=== PATIENT | female | born 1970 | race Caucasian/White ===

== ENCOUNTER 2018-12-21 23:46 | Inpatient (IN) | payer OTHER ==
[2018-12-21] MEDS ORDERED: Lorazepam 2 MG/ML VIAL ONE (23:47)
[2018-12-22 00:09] LABS: Bilirubin Negative (Negative); Blood, Urine Negative (Negative); Clarity CLEAR (Clear); Glucose, Urine (Dipstick) Negative (Negative); Leukocyte Negative (Negative); Nitrite Negative (Negative); Protein, Urine (Dipstick) 100 mg/dL (Neg-Trace); Specific Gravity, Urine 1.004 (1.002-1.036); Urobilinogen 0.2 mg/dL (0.2-1.0)
[2018-12-22 00:10] LABS: Bacteria/HPF None Seen HPF (None Seen); Hyaline Casts/LPF 0-3 HYALINE CAST LPF (0-3 Hyaline); Pathc Cast-AUWi Flag 0.13 (0-2.49); RBC/HPF None Seen HPF (0-3); Squamous Epithelial 0-3 HPF (0-3); WBC/HPF None Seen HPF (0-3)
[2018-12-22] MEDS ORDERED: Lorazepam 2 MG/ML VIAL ONE (00:10)
[2018-12-22 00:26] LABS: #Lymphocytes 0.5 thou/uL (1.20-3.40); #Monocytes 0.4 thou/uL (0.11-0.59); #Neutrophils 3.3 thou/uL (1.40-6.50); %Basophils 1.1 % (0.0-1.0); %Eosinophils 0.9 % (0.0-10.0); %Lymphocytes 12.5 % (21.0-51.0); %Monocytes 9.2 % (0.0-10.0); %Neutrophils 76.3 % (42.0-75.0); Hemoglobin 11.5 g/dL (12.0-16.0); Mean Corpuscular HGB CONC 35.9 g/dL (32.0-36.0); Mean Corpuscular Hemoglobin 33.5 pg (27.0-31.0); Mean Corpuscular Volume 93.2 fL (78.0-98.0); Mean Platelet Volume 6.4 fL (7.4-10.4); Platelet Count 159 thou/uL (130-400); RBC Distribution Width 10.7 % (11.5-14.5); Red Blood Cell (RBC) Count 3.45 mill/uL (4.20-5.40); White Blood Cell (WBC) Count 4.3 thou/uL (4.8-10.8)
[2018-12-22 00:26] LABS: Medtox Reader # READER 4; Phencyclidine (PCP) Not Detected (NotDetected); THC/Cannabinoid Screen Not Detected (NotDetected)
[2018-12-22 00:27] LABS: Amphetamine Not Detected (NotDetected); Barbiturates Screen Not Detected (NotDetected); Benzodiazepine Screen Not Detected (NotDetected); Cocaine Metabolite Screen Detected (NotDetected); Medtox Control Line Valid? VALID (VALID); Methadone Not Detected (NotDetected); Methamphetamine Not Detected (NotDetected); Opiate Screen Not Detected (NotDetected); Oxycodone Screen Not Detected (NotDetected); Tricyclic Screen Detected (NotDetected)
[2018-12-22 00:50] LABS: ALT (SGPT) 14 U/L (8-55); AST (SGOT) 20 U/L (5-34); Albumin 4.2 g/dL (3.5-5.0); Alkaline Phosphatase 133 U/L (40-150); Anion Gap 16 mmol/L (10-20); BUN (Urea Nitrogen) 11 mg/dL (7.0-18.7); Bilirubin, Total 0.4 mg/dL (0.2-1.2); Calc. Creatinine Clearance 0 mL/min (70-130); Calcium 9.3 mg/dL (7.8-10.44); Carbon Dioxide 20 mmol/L (22-29); Chloride 86 mmol/L (98-107); Estimated GFR-MDRD 40; Globulin 3.9 g/dL (2.4-3.5); Glucose 112 mg/dL (70-105); Protein, Total 8.1 g/dL (6.0-8.3)
[2018-12-22 00:51] LABS: Acetaminophen Less than 6.0 mcg/mL (10.0-30.0); Alcohol 192 mg/dL (Less than 10); Salicylate Less than 8.0 mg/dL (15.0-30.0)
[2018-12-22 00:58] LABS: Potassium 2.6 mmol/L (3.5-5.1); Sodium 119 mmol/L (136-145)
[2018-12-22 01:15] LABS: Actual Bicarbonate (HCO3a) 21.4 mEq/L (22-28); Analyzer IN Cardio ER; Base Excess (BEa) -6.1 mEq/L (-2.0 to +3.0); CO2 Tension 50.4 mmHg (35.0-45.0); Calcium, Ionized 1.17 mmol/L (1.12-1.30); Carboxyhemoglobin (COHb) 2.1 gm% (0.0-3.0); O2 Tension (PaO2) 260.7 mmHg (80.0-100.0); Potassium - ABG Lab 2.57 mmol/L (3.70-5.30)
[2018-12-22 01:19] LABS: Puncture Site LRA; pH, Arterial 7.25 (7.35-7.45)
[2018-12-22] MEDS ORDERED: Potassium Chloride 20 MEQ in Premix Bag 1 BAG IVPB SCH (01:30)
[2018-12-22] MEDS ORDERED: Guaifenesin DM 100-10/5 ML UDCUP PO PRN (03:17)
[2018-12-22] MEDS ORDERED: NS 0.9% w/ 20 MEQ KCL 1,000 ML/1,000 ML BAG IV SCH ×2 (03:17→07:42)
[2018-12-22] MEDS ORDERED: Senokot S 8.6-50 MG TAB PO PRN (03:17)
[2018-12-22] MEDS ORDERED: Ondansetron PF 4 MG/2 ML Vial IVP PRN (03:17)
[2018-12-22] MEDS ORDERED: Calcium Carbonate 500 MG ChewTAB PO PRN (03:17)
[2018-12-22] MEDS ORDERED: Acetaminophen 325 MG TAB PO PRN (03:17)
[2018-12-22] MEDS ORDERED: Loperamide HCl 2 MG CAP PO PRN (03:17)
[2018-12-22] MEDS ORDERED: Bacteriostatic Water 30 ML VIAL FS PRN (03:50)
[2018-12-22] MEDS ORDERED: Multivitamins, Adult 10 ML in Sodium Chloride 0.9% 500 ML IV SCH (04:00)
[2018-12-22 04:33] LABS: Creatinine, Urine Less than 20.00 mg/dL (47-110); Sodium, Urine Less than 20 mmol/L (Not Available)
--- NOTE | 2018-12-22 04:48 | HP ---
PRIMARY CARE PHYSICIAN: Unknown. REASON FOR ADMISSION: Toxic metabolic encephalopathy and COPD exacerbation. HISTORY OF PRESENT ILLNESS: A 48-year-old female, who has underlying history of COPD who was brought to emergency room by paramedics for increasing shortness of breath and altered mental status. Patient was having difficulty breathing for the last 5 days. The patient is not able to provide any history at this point because she is completely encephalopathic. She has alcohol intoxication as well as drug intoxication. When paramedics saw her at that time, she was very combative. Paramedics gave her magnesium sulfate en route without any improvement. As per report, patient has home oxygen. She has underlying COPD. She refused CPAP, which was offered by paramedics. As the patient was so combative, she was given 1 mg Ativan. After that, patient became sleepy. She was given high-flow oxygen and that is why her carbon dioxide level was slightly high. She was also given 125 mg Solu-Medrol for her wheezing. In the emergency room, she was somnolent. She was not able to provide any history. She was admitted to [facility]. Routine blood test showed severe hyponatremia, hypokalemia, as well as leukopenia and anemia. Blood gas showed metabolic acidosis and CO2 retention. Her urine drug screen was positive for cocaine and tricyclic, and her alcohol level was 192. In the emergency room , patient was given IV fluid with potassium. Another dose of Ativan was given for agitation as well as DuoNeb therapy was given. When I saw the patient, at that time, the patient was somnolent and hemodynamically stable. REVIEW OF SYSTEMS: All review of system tried to review the patient, but unable to review because of altered mental status. PAST MEDICAL HISTORY: COPD with ?home oxygen therapy (unable to verify with the patient because of intoxication). PAST SURGICAL HISTORY: Unable to verify with the patient because of intoxication. PAST PSYCHIATRIC HISTORY: Anxiety and depression, unable to verify because of intoxication. SOCIAL HISTORY: Patient has drug positive for cocaine, but details unable to obtain from her because of intoxication. FAMILY HISTORY: Unable to obtain from patient because of intoxication. ALLERGIES: NO KNOWN DRUG ALLERGIES. CURRENT HOME MEDICATIONS: As per emergency room report, patient is on amitriptyline and Nexium. EMERGENCY ROOM COURSE: Patient is given IV fluid with potassium, Ativan, DuoNeb therapy, and potassium chloride IV. PHYSICAL EXAMINATION: VITAL SIGNS: Currently, blood pressure 127/84, pulse 100, respiratory rate 23, and saturation 95% on 1 L oxygen. Weight 47 kg. GENERAL: Patient is currently somnolent, arousable with deep noxious stimuli. HEENT: Head; normocephalic, atraumatic. Eyes; pupils round, reactive to light. Extraocular muscle intact. ENT; dry mucous membranes. No oral lesion. No pharyngeal erythema. No exudate. NECK: Supple. No JVD. No thyromegaly. No carotid bruit. LUNGS: Currently clear to auscultation without any rhonchi or rales. No accessory muscles of respiration use. CARDIAC: S1, S2 regular. Tachycardia. No murmur. No gallop. No rub. ABDOMEN: Soft, benign. No peritoneal sign. No distention. Bowel sounds present. No organomegaly. No mass. BACK EXAMINATION: Unremarkable. No CVA tenderness. EXTREMITIES: Upper extremity, passive movement of all joints are normal. Lower extremity, passive movement of all joints are normal. NEUROLOGIC: Unable to assess at this point because of somnolence status after Ativan. SKIN: No skin rash. HEMATOLOGICAL: No lymphadenopathy. PSYCHIATRIC: Unable to assess at this point. SIGNIFICANT LABORATORY DATA: EKG showing sinus tachycardia. CT brain based on my review no acute intracranial process. Chest x-ray based on my review no acute cardiopulmonary process. CBC; WBC 4.3, hemoglobin 11.5, and platelet 159. ABG; pH 7.25, CO2 is 50.4. O2 is 260, and bicarb 21.4. BMP; sodium 119, potassium 2.6, chloride 86, carbon dioxide 20, anion gap 16, BUN 11, creatinine 1.39, glucose 112, and calcium 9.3. LFT; AST 20, ALT 14, alkaline phosphatase 133, and albumin 4.2. BNP 72.5. Troponin x2 negative. Ammonia 26. Urinalysis unremarkable. Urine drug screen positive for tricyclic and cocaine. Serum drug screen showing alcohol level 192. ASSESSMENT AND PLAN: 1. Acute toxic metabolic encephalopathy, likely due to alcohol intoxication as well as cocaine abuse. Patient also has associated mild respiratory acidosis as well as abnormal electrolytes, all contributing to her encephalopathy. 2. Acute respiratory failure with hypoxia and hypercapnia. We will use oxygen only 1 L. We will monitor ABG again in the morning. Pulmonary group will be consulted. 3. Severe hyponatremia. We will check urine osmolality, plasma osmolality, urine sodium, urine creatinine as well as a TSH and random cortisol. We will also consult Nephrology for evaluation suspecting beer potomania as well. We will continue with NS with KCl at 100 mL/h. 4. Hypokalemia, likely due to alcohol use. Potassium is replaced in the emergency room. We will continue with potassium supplementation with IV fluid. We will recheck magnesium, phosphorus, and labs tomorrow. 5. Alcohol intoxication with alcohol abuse. Patient is at risk for alcohol withdrawal and that is why we will use ASE protocol. 6. Acute kidney failure. The patient will be given IV fluid and will repeat BMP tomorrow. 7. Chronic obstructive pulmonary disease exacerbation. Patient will be given DuoNeb q.6 hourly, Solu-Medrol 20 mg IV q.8 hourly. 8. Gastroesophageal reflux disease. We will continue Pepcid 20 mg p.o. b.i.d. 9. Leukopenia, anemia. Patient will be given multivitamins. 10. Protein-calorie malnutrition. Patient will be given nutritional supplementation. 11. Deep venous thrombosis prophylaxis. Lovenox 30 mg subcu daily. 12. Gastrointestinal prophylaxis. Pepcid 20 mg p.o. b.i.d. CODE STATUS: Patient is full code. Patient does not have any surrogate decision maker. DISPOSITION PLAN: Based on clinical course. We are expecting patient's stay in hospital more than 2 midnights. Plan of care discussed with the patient in detail. Job ID: [id number] MTDD
[2018-12-22 05:41] LABS: #Lymphocytes 0.1 thou/uL (1.20-3.40); #Neutrophils 2.7 thou/uL (1.40-6.50); %Monocytes 1.1 % (0.0-10.0); %Neutrophils 94.9 % (42.0-75.0); Hemoglobin 10.9 g/dL (12.0-16.0); Mean Corpuscular Hemoglobin 32.8 pg (27.0-31.0); Mean Corpuscular Volume 93.6 fL (78.0-98.0); Mean Platelet Volume 6.5 fL (7.4-10.4); Platelet Count 158 thou/uL (130-400); RBC Distribution Width 10.8 % (11.5-14.5); Red Blood Cell (RBC) Count 3.31 mill/uL (4.20-5.40); White Blood Cell (WBC) Count 2.8 thou/uL (4.8-10.8)
[2018-12-22 05:45] LABS: ALT (SGPT) 10 U/L (8-55); AST (SGOT) 17 U/L (5-34); Albumin 3.7 g/dL (3.5-5.0); Alkaline Phosphatase 118 U/L (40-150); Anion Gap 17 mmol/L (10-20); BUN (Urea Nitrogen) 10 mg/dL (7.0-18.7); Bilirubin, Total 0.3 mg/dL (0.2-1.2); Calc. Creatinine Clearance 40 mL/min (70-130); Calcium 8.9 mg/dL (7.8-10.44); Carbon Dioxide 17 mmol/L (22-29); Chloride 93 mmol/L (98-107); Estimated GFR-MDRD 44; Globulin 3.5 g/dL (2.4-3.5); Glucose 121 mg/dL (70-105); Magnesium 2.1 mg/dL (1.6-2.6); Phosphorus 2.4 mg/dL (2.3-4.7); Potassium 3.5 mmol/L (3.5-5.1); Protein, Total 7.2 g/dL (6.0-8.3); Sodium 123 mmol/L (136-145)
[2018-12-22] MEDS: methylPREDNISolone Sod Succ 40 MG VIAL IVP SCH ×3 (05:55→21:02)
--- NOTE | 2018-12-22 07:38 | CT ---
PRELIMINARY REPORT/[facility]/EMERGENCY AFTER HOURS PROCEDURE: EXAM: CT Head Without Contrast EXAM DATE/TIME: 12/22/2018 1:37 AM CLINICAL HISTORY: 48 years old, female; Signs and symptoms; Altered mental status/memory loss; Confusion or disorientat ion; Patient HX: F48 presents to ED C/O difficulty breathing x5 days. EMS reports PT is combative and smells strongly of alcohol, TECHNIQUE: Imaging protocol: Axial computed tomography images of the head without contrast. COMPARISON: No relevant prior studies available. FINDINGS: Brain: No acute intracranial hemorrhage or mass effect. There is decreased attenuation in the periventricular white matter, likely from microvascular disease . Suspect an old lacunar infarct in the right basal ganglia/periventricular region. No definite acute infarct by CT. MRI could be more sensitive/specific for detection, and also for distinguishing between old and subacute infarcts, as clinically directed. Ventricles: Ventricle size is normal for age. Bones/joints: No definite acute skull fracture. Sinuses: Included paranasal sinuses are essentially clear. Mastoid air cells: No significant acute finding. IMPRESSION: 1. No acute intracranial hemorrhage or mass effect. 2. Changes of microvascular disease, and suspected old right lacunar infarct. 3. No definite acute infarct by CT, see above discussion. Thank you for allowing us to participate in the care of your patient. Dictated and Authenticated by: Alexis Snider MD 12/22/2018 2:10 AM Central Time ([place] & [place]) FINAL REPORT: CT Brain WO Con: History: Altered mental status. Comparison: CT brain 2010. Findings: No acute intracranial process. Impression: Findings and impression are concordant with the preliminary report. Transcribed Date/Time: 12/22/2018 8:47 AM
[2018-12-22] MEDS ORDERED: Potassium Chloride 20 MEQ TAB PO SCH (07:45)
--- NOTE | 2018-12-22 07:48 | RAD ---
Portable chest: HISTORY: Dyspnea COMPARISON: 10/13/2015 FINDINGS: Lung jung are clear. Heart and mediastinum appear unremarkable. Vascularity is normal. Visualized osseous structures unremarkable. IMPRESSION: No acute finding
[2018-12-22 08:13] LABS: Actual Bicarbonate (HCO3a) 21.4 mEq/L (22-28); Base Excess (BEa) -4.5 mEq/L (-2.0 to +3.0); CO2 Tension 42.4 mmHg (35.0-45.0); Calcium, Ionized 1.22 mmol/L (1.12-1.30); Carboxyhemoglobin (COHb) 1.9 gm% (0.0-3.0); Hemoglobin (Hb) 11.9 g/dL (12.0-16.0); O2 Tension (PaO2) 63.6 mmHg (80.0-100.0); Potassium - ABG Lab 3.69 mmol/L (3.70-5.30); pH, Arterial 7.32 (7.35-7.45)
[2018-12-22 08:14] LABS: Puncture Site LRA
[2018-12-22] MEDS ORDERED: Famotidine 20 MG TAB PO SCH (09:00)
[2018-12-22] MEDS ORDERED: Enoxaparin Sodium 40 MG/0.4 ML SYRINGE SC SCH (09:00)
--- NOTE | 2018-12-22 10:12 | CON ---
DATE OF CONSULTATION: HISTORY OF PRESENT ILLNESS: Hailey De Jesus is a 48-year-old female, looks much older than her stated age, presented last night to the hospital with shortness of breath and confusion. Little over several days, she is drinking excessive alcohol, though she says she will drink 4 beers. Pack-a-day smoker. She was here in 2015 with similar problems. Unclear taking care of her at this stage. This morning, she remains encephalopathic, though apparently her vital signs improved somewhat. PAST MEDICAL HISTORY: Pertinent for previous substance abuse, previous renal failure, previous hyponatremia, previous COPD. She has a bipolar disorder, previous renal biopsy, previous hemodialysis catheter in place. REVIEW OF SYSTEMS: Otherwise unremarkable. PHYSICAL EXAMINATION: VITAL SIGNS: Sats 96% on 2 L, respiratory rate 20, blood pressure 126/92, temperature 98, and pulse 76. CHEST: Decreased breath sounds. No wheezing. CARDIAC: Normal S1 and S2. No gallops. ABDOMEN: No masses. IMAGING DATA: Chest x-ray is normal. CT of head was normal. Her lab shows a sodium of 123 this morning. Renal function, otherwise stable. LABORATORY DATA: Creatinine 1.28. Liver function is normal.sodium 119 on addmision Albumin is unremarkable. Toxicology, cocaine. PO2 of 63, pCO2 40, pH 7.32. IMPRESSION: 1. Acute on chronic respiratory failure. 2. Chronic obstructive pulmonary disease. 3. Ongoing tobacco abuse. 4. Substance abuse. 5. Hyponatremia. 6. Alcohol abuse. I agree with neb treatments, steroids, supportive care. We will follow cardiac sodium slowly. Job ID: [id number] MTDD
[2018-12-22] MEDS: Famotidine 20 MG TAB PO SCH (10:58)
[2018-12-22] MEDS: Enoxaparin Sodium 30 MG/0.3 ML SYRINGE SC SCH (10:58)
[2018-12-22 12:36] LABS: Anion Gap 14 mmol/L (10-20); BUN (Urea Nitrogen) 11 mg/dL (7.0-18.7); Calc. Creatinine Clearance 38 mL/min (70-130); Calcium 9.6 mg/dL (7.8-10.44); Carbon Dioxide 22 mmol/L (22-29); Chloride 97 mmol/L (98-107); Estimated GFR-MDRD 41; Glucose 149 mg/dL (70-105); Potassium 3.9 mmol/L (3.5-5.1); Sodium 129 mmol/L (136-145)
[2018-12-22] MEDS ORDERED: Dextrose 5% in Water 500 ML IV SCH ×2 (14:30→14:56)
[2018-12-22 16:27] LABS: Anion Gap 11 mmol/L (10-20); BUN (Urea Nitrogen) 12 mg/dL (7.0-18.7); Calc. Creatinine Clearance 36 mL/min (70-130); Calcium 9.7 mg/dL (7.8-10.44); Carbon Dioxide 25 mmol/L (22-29); Chloride 98 mmol/L (98-107); Estimated GFR-MDRD 39; Glucose 174 mg/dL (70-105); Potassium 4.2 mmol/L (3.5-5.1); Sodium 130 mmol/L (136-145)
--- NOTE | 2018-12-22 16:32 | CON ---
DATE OF CONSULTATION: 12/22/2018 CONSULTING PHYSICIAN: Tanya Fonseca MD REASON FOR CONSULTATION: Severe hyponatremia. HISTORY OF PRESENT ILLNESS: The patient is a 48-year-old female with known history of COPD, polysubstance abuse, who was brought in by EMS due to worsening shortness of breath and mental status change. The patient was confused on presentation and was unable to provide any significant history. She, however, was found to have hyponatremia with sodium of 119 necessitating Nephrology consult. The patient admitted to nausea and vomiting as well as intermittent frequent loose stools. She also was found to have hypokalemia. She denied chest pain, abdominal pain, but admitted to headache. She also denied dizziness, fall, dysuria, hematuria, or leg swelling. The patient reportedly was agitated when EMS saw her necessitating administration of IV Ativan. PAST MEDICAL HISTORY: 1. COPD. 2. Tobacco abuse disorder. 3. Polysubstance abuse. 4. Bipolar disorder. 5. Chronic kidney disease, status post prior renal biopsy. 6. The patient had prior renal failure for which she was on dialysis for some time that was discontinued subsequently. Was seeing Dr. Jimi cummings, but had not seen him for several years. PAST SURGICAL HISTORY: Appendectomy and delivery. SOCIAL HISTORY: The patient lives behind ex-. Admitted to alcohol, recreational drug, tobacco use. Has 5 kids. FAMILY HISTORY: Significant for depression and suicide in mother, who from suicide. Father also had alcohol issues and from COPD complications. ALLERGIES: NO KNOWN DRUG ALLERGIES REPORTED. HOME MEDICATIONS: The patient reports being on several medications including Flovent, amitriptyline, but she does not know the doses and names of others. REVIEW OF SYSTEMS: 12-point review of systems performed was negative other than pertinent positives and negatives included in the history of present illness. This also was grossly limited due to the patient's condition. PHYSICAL EXAMINATION: VITAL SIGNS: Temperature 97.6, pulse 107, respiratory rate 25, SpO2 of 99% on 1 L nasal cannula, blood pressure 125/84. GENERAL: Thin, middle-aged female, in mild respiratory distress. Afebrile. Anicteric. Acyanotic. HEENT: Normocephalic, atraumatic. Pupils 5 mm and reacting to light. Oral mucosa is moist. NECK: Supple, nontender with full range of motion. No masses or lymphadenopathy appreciated. CARDIOVASCULAR: Regular rhythm and rate with normal heart sounds 1 and 2. The patient is tachycardic. RESPIRATORY: Coarse breath sounds heard in all lung zones with some transmitted sounds/crackles. No obvious rhonchi was appreciated. Work of breathing is increased. GI: Full, soft, nontender, nondistended with normal bowel sounds. EXTREMITIES: Pain with no obvious edema. Few areas of resolving ecchymosis noted. Distal pulses are palpable. No erythema or edema appreciated. NEUROLOGIC: Conscious, alert, oriented x3. Mild memory lapse is noted. The patient moves all extremities. Cranial nerves 2 through 12 are intact. PSYCHIATRIC: The patient seems appropriate and cooperative. Denied hallucination. Some tremors noted. DIAGNOSTIC DATA: On presentation to the ED, CBC showed WBC count of 4.3, hemoglobin of 11.5, MCV of 93.2, platelet of 159. CMP on presentation showed sodium 119, potassium 2.6, chloride 86, CO2 of 20, anion gap 16, BUN 11, creatinine 1.39, glucose 112, calcium 9.3, total bilirubin 0.4, AST 20, ALT 14, alkaline phosphatase 133, total protein 8.1, albumin 4.2, globulin 3.9. Most recent BMP at 12:08 p.m. showed sodium 129, potassium 3.9, chloride 97, CO2 of 22, anion gap 14, BUN 11, creatinine 1.36, glucose 149, calcium 9.6. Magnesium is 2.1. Serum osmolality 273. Urine osmolality is 126. Urine creatinine is less than 20. Urine sodium is less than 20. Urinalysis showed clear yellow urine with pH of 6.0, specific gravity of 1.04, urine protein positive with negative glucose, ketone, blood, nitrite, bilirubin, and leukocyte esterase. Microscopy showed negative RBC and WBC. Urine drug screen was positive for tricyclic antidepressant as well as cocaine. Plasma alcohol on presentation was 192. Acetaminophen was less than 6.0 and salicylate was less than 8.0. CT scan of the brain performed on presentation showed no acute intracranial hemorrhage or mass effect, but changes of microvascular disease as well as right old lacunar infarcts were noted. Chest x-ray showed clear lung jung as well as unremarkable heart and mediastinum with no acute finding. ASSESSMENT: 1. Hyponatremia: Moderate to severe with serum sodium of 119. This is beer potomania from poor solute intake given appropriately low urine osmolality consistent with dilute urine. Hypokalemia also is contributory. We will replete serum sodium slowly as the patient being thin and with chronic alcohol abuse that is at increased risk of osmotic demyelination. We will target a correction of 6 units in the first 24 hours. I agree with normal saline. We will, however, reduce the rate to 50 mL/h from 100 and we will monitor serum sodium every 4 hours. 2. Hypokalemia: Due to poor oral intake as well as intermittent diarrhea. We will replete with potassium chloride. 3. Acute encephalopathy: Most likely due to polysubstance abuse as well as medications. The patient received Ativan. Clinically improved. She is cooperative and conversational at this time. Doubt if hyponatremia is contributing to these encephalopathy. 4. Chronic obstructive pulmonary disease with acute exacerbation. Deferred to Pulmonary and Critical Care as well as primary attending. 5. Chronic kidney disease with possible reversible component. The patient reportedly has history of renal failure requiring dialytic treatment, but was weaned off dialysis with improvement in renal function. Baseline creatinine is unknown at this time. We will monitor renal function. 6. Protein-calorie malnutrition: This is due to alcohol abuse and poor oral intake. We will add oral supplement. 7. We will monitor BMP and start dextrose infusion if rate of correction is higher than expected. Job ID: [id number]
[2018-12-22] MEDS: Dextrose 5% in Water 500 ML IV SCH ×2 (18:17→21:28)
[2018-12-22 20:50] LABS: Anion Gap 12 mmol/L (10-20); BUN (Urea Nitrogen) 15 mg/dL (7.0-18.7); Calc. Creatinine Clearance 40 mL/min (70-130); Calcium 9.2 mg/dL (7.8-10.44); Carbon Dioxide 22 mmol/L (22-29); Chloride 99 mmol/L (98-107); Estimated GFR-MDRD 44; Glucose 183 mg/dL (70-105); Potassium 3.5 mmol/L (3.5-5.1); Sodium 129 mmol/L (136-145)
[2018-12-23] MEDS ORDERED: Diazepam 5 MG TAB PO PRN (01:19)
[2018-12-23] MEDS ORDERED: Diazepam 5 MG TAB PO SCH (01:30)
[2018-12-23] MEDS ORDERED: Thiamine HCl 200 MG/2 ML VIAL IM SCH (01:30)
[2018-12-23 01:39] LABS: Anion Gap 12 mmol/L (10-20); BUN (Urea Nitrogen) 16 mg/dL (7.0-18.7); Calc. Creatinine Clearance 40 mL/min (70-130); Calcium 9.5 mg/dL (7.8-10.44); Carbon Dioxide 23 mmol/L (22-29); Chloride 99 mmol/L (98-107); Estimated GFR-MDRD 44; Glucose 132 mg/dL (70-105); Potassium 4.7 mmol/L (3.5-5.1); Sodium 129 mmol/L (136-145)
[2018-12-23] MEDS: Dextrose 5% in Water 500 ML IV SCH ×4 (02:09→09:51)
[2018-12-23 04:54] LABS: Anion Gap 9 mmol/L (10-20); BUN (Urea Nitrogen) 14 mg/dL (7.0-18.7); Calc. Creatinine Clearance 40 mL/min (70-130); Calcium 9.6 mg/dL (7.8-10.44); Carbon Dioxide 25 mmol/L (22-29); Chloride 100 mmol/L (98-107); Estimated GFR-MDRD 44; Glucose 192 mg/dL (70-105); Potassium 3.5 mmol/L (3.5-5.1); Sodium 130 mmol/L (136-145)
[2018-12-23 05:04] LABS: Band 4 % (5-11); Hemoglobin 11.1 g/dL (12.0-16.0); Hypochromia SLIGHT = 6-15 cells (100X) (0-5/hpf); Lymphocytes 5 % (21-51); MDiff Complete? YES; Mean Corpuscular HGB CONC 34.6 g/dL (32.0-36.0); Mean Corpuscular Hemoglobin 32.8 pg (27.0-31.0); Mean Corpuscular Volume 94.7 fL (78.0-98.0); Mean Platelet Volume 6.4 fL (7.4-10.4); Monocytes 4 % (0-10); Neutrophil 87 % (42-75); Platelet Count 197 thou/uL (130-400); Platelet Morphology Comment Appears Adequate; Red Blood Cell (RBC) Count 3.38 mill/uL (4.20-5.40); White Blood Cell (WBC) Count 5.9 thou/uL (4.8-10.8)
[2018-12-23] MEDS: methylPREDNISolone Sod Succ 40 MG VIAL IVP SCH ×3 (06:06→21:27)
[2018-12-23 08:08] LABS: Anion Gap 12 mmol/L (10-20); BUN (Urea Nitrogen) 15 mg/dL (7.0-18.7); Calc. Creatinine Clearance 42 mL/min (70-130); Calcium 9.4 mg/dL (7.8-10.44); Carbon Dioxide 24 mmol/L (22-29); Chloride 98 mmol/L (98-107); Estimated GFR-MDRD 48; Glucose 113 mg/dL (70-105); Potassium 3.8 mmol/L (3.5-5.1); Sodium 130 mmol/L (136-145)
[2018-12-23] MEDS ORDERED: cloNIDine 0.1 MG TAB PO PRN (08:16)
--- NOTE | 2018-12-23 08:44 | PRG ---
DATE OF SERVICE: 12/23/2018 SUBJECTIVE: Hailey De Jesus, this morning, still remains pretty short of breath, though she is swallowing little better. Denies any pain. OBJECTIVE: VITAL SIGNS: Blood pressure is elevated at 180/101, temperature 97, pulse 88, respiratory rate 18, and saturations are 100%. CHEST: Decreased breath sounds. Bilateral wheezing. CARDIAC: Normal S1 and S2. No gallops. ABDOMEN: No masses. LABORATORY DATA: Sodium is corrected to 130, BUN and creatinine are back to normal, and GFR is 48. IMPRESSION: 1. Polysubstance drug abuse. 2. Hyponatremia. 3. Chronic obstructive pulmonary disease. PLAN: Continue slow hydration. Nutrition, PT, antibiotics, steroids. We will follow. Job ID: [id number]
[2018-12-23] MEDS: Enoxaparin Sodium 30 MG/0.3 ML SYRINGE SC SCH (09:43)
[2018-12-23] MEDS: Multivitamin W/ Minerals 1 TAB PO SCH (09:44)
[2018-12-23] MEDS: Famotidine 20 MG TAB PO SCH (09:44)
[2018-12-23] MEDS: Amitriptyline HCl 25 MG TAB PO SCH ×2 (09:44→16:39)
[2018-12-23] MEDS: Folic Acid 1 MG TAB PO SCH (09:44)
[2018-12-23] MEDS ORDERED: Dextrose 5% in Water 1,000 ML IV SCH ×2 (10:00→10:10)
--- NOTE | 2018-12-23 10:13 | PDOC.PN ---
- Subjective Encounter Start Date: 12/23/18 Encounter Start Time: 10:10 Subjective: f/u for ETOH abuse, hyponatremia and COPD exacerbation. Feels -: a little better but remains weak. Tolerating po intake. - Objective Resuscitation Status - Order Detail: 12/22/18 03:11 Resuscitation Status Routine Resuscitation Status: FULL: Full Resuscitation MAR Reviewed: Yes Vital Signs & Weight: Vital Signs (12 hours) Temp Pulse Resp BP Pulse Ox 12/23/18 08:48 118 H 25 H 99 12/23/18 08:00 100 12/23/18 07:27 97.8 F 12/23/18 04:00 98.9 F 12/23/18 01:23 162/105 H 12/23/18 00:06 119 H 28 H 97 12/22/18 23:56 98.2 F Weight Weight 102 lb 9.6 oz Most Recent Monitor Data Heart Rate from ECG 101 NIBP 167/103 NIBP BP-Mean 124 Respiration from ECG 25 SpO2 100 I&O: 12/22/18 12/23/18 12/24/18 06:59 06:59 06:59 Intake Total 690 3350 Output Total 600 5850 Balance 90 -2500 Result Diagrams: 12/23/18 04:06 12/23/18 07:35 Additional Labs: Laboratory Tests 12/22/18 12/23/18 12/23/18 20:08 00:48 04:06 Sodium 129 L 129 L Creatinine 1.28 H 1.29 H TSH 3rd Generation Cortisol 1.80 12/23/18 12/23/18 04:06 04:06 Sodium 130 L Creatinine 1.28 H TSH 3rd Generation 0.3610 Cortisol Radiology Reviewed by me: Yes (CT brain - no acute process) EKG Reviewed by me: Yes (Tele - Sinus tachycardia) Phys Exam - Physical Examination Constitutional: NAD alert, responsive HEENT: PERRLA, sclera anicteric, oral pharynx no lesions Neck: no nodes, no JVD, supple, full ROM coarse sounds bilat, exp wheezing, diminished in bases tachycardic S1, S2 Cardiovascular: no significant murmur, no rub, gallop Gastrointestinal: soft, non-tender, no distention, positive bowel sounds Musculoskeletal: no edema, pulses present + resting tremor Neurological: normal sensation, moves all 4 limbs Psychiatric: A&O x 3 Skin: normal turgor, cap refill <2 seconds Dx/Plan (1) Toxic metabolic encephalopathy Code(s): G92 - TOXIC ENCEPHALOPATHY Status: Acute Comment: Improved with supportive mgmt, continue metabolic support and monitor mental status (2) Acute respiratory failure with hypoxia Code(s): J96.01 - ACUTE RESPIRATORY FAILURE WITH HYPOXIA Status: Acute Comment: Improved, continue pulmonary support, Dulera, Solumedrol, Duonebs, O2 supplementation (3) COPD exacerbation Code(s): J44.1 - CHRONIC OBSTRUCTIVE PULMONARY DISEASE W (ACUTE) EXACERBATION Status: Acute Comment: See above (4) Hyponatremia Code(s): E87.1 - HYPO-OSMOLALITY AND HYPONATREMIA Status: Acute Comment: Severe hyponatremia improving, secondary to ETOH abuse, chronic component that will likely never correct completely (5) Acute kidney injury superimposed on CKD Code(s): N17.9 - ACUTE KIDNEY FAILURE, UNSPECIFIED; N18.9 - CHRONIC KIDNEY DISEASE, UNSPECIFIED Status: Acute Comment: Improved, avoid nephrotoxic agents and limit contrast exposure (6) Alcohol abuse Code(s): F10.10 - ALCOHOL ABUSE, UNCOMPLICATED Status: Chronic Comment: Cessation resources, continue ASE protocol, MVI, Thiamine/Folate (7) Polysubstance abuse Code(s): F19.10 - OTHER PSYCHOACTIVE SUBSTANCE ABUSE, UNCOMPLICATED Status: Chronic Comment: Substance abuse resources - Plan continue antibiotics, PT/OT, social media assistant, respiratory therapy, out of bed/ ambulate, DVT proph w/SCDs Stable currently -: Add Omnicef 300mg BID -: Resume Dulera -: PT evaluation for functional assessment -: Transfer to Medical floor * AM lab: CMP, CBC
[2018-12-23] MEDS ORDERED: NIFEdipine XL 60 MG TAB PO SCH (10:15)
[2018-12-23] MEDS: Fluticasone Propionate Nasal Spray 16 gm Bottle NASAL SCH (11:01)
[2018-12-23 16:01] LABS: Anion Gap 12 mmol/L (10-20); BUN (Urea Nitrogen) 15 mg/dL (7.0-18.7); Calc. Creatinine Clearance 34 mL/min (70-130); Calcium 9.7 mg/dL (7.8-10.44); Carbon Dioxide 22 mmol/L (22-29); Chloride 98 mmol/L (98-107); Estimated GFR-MDRD 38; Glucose 172 mg/dL (70-105); Potassium 3.5 mmol/L (3.5-5.1); Sodium 128 mmol/L (136-145)
--- NOTE | 2018-12-23 17:59 | PRG ---
DATE OF SERVICE: 12/23/2018 SUBJECTIVE: A 48-year-old female with chronic alcohol abuse and COPD, admitted due to worsening shortness of breath as well as acute mental status change. The patient was found to have hyponatremia with sodium of 119 as well as potassium of 2.6 necessitating Nephrology consult. The patient was treated with normal saline initially with abrupt increase in serum sodium to 129 in about 6 hours, hence was started on dextrose infusion to reduce plasma sodium. The patient remained neurologically stable. In fact, mental status has improved today. She is more awake, alert, and conversational with appropriate mentation and answers. Shortness of breath also has improved. Denied nausea or vomiting. Oral intake has improved. OBJECTIVE: VITAL SIGNS: Temperature 97.8, pulse 117, respiratory rate 21, SpO2 of 99% on 2 L nasal cannula, blood pressure is 123/84. GENERAL: Thin middle aged female, in no obvious distress. Afebrile, anicteric, acyanotic. HEENT: Normocephalic, atraumatic. Oral mucosa is moist. CARDIOVASCULAR: Regular rhythm, but tachycardic. Normal heart sounds 1 and 2. RESPIRATORY: Fair air entry bilaterally with some transmitted sounds. No obvious crackle appreciated. Work of breathing is not overtly increased. GI: Full, soft, nontender, nondistended with normal bowel sounds. EXTREMITIES: Grossly normal looking, but thin. No obvious edema or erythema. NEUROLOGIC: Conscious and alert and oriented x3 with appropriate mental status. The patient answers questions appropriately. She is cooperative with no hallucination. Cranial nerves 2 through 12 are intact. The patient moves all extremities. DIAGNOSTIC DATA: Most current BMP at 1542 hours showed sodium 128, potassium 3.5, chloride 98, CO2 of 22, anion gap 12, BUN 15, creatinine 1.46, glucose 172, calcium 9.7. CBC showed WBC count of 5.9, hemoglobin of 11.1, platelet of 197. ASSESSMENT AND PLAN: 1. Severe and symptomatic hyponatremia: This was felt to be due to poor solute intake and hypokalemia. Serum sodium improved with normal saline and repletion of sodium and potassium chloride, however, the rate of increase was deemed to be too fast, hence the patient was started on dextrose infusion. Last sodium is 128, down from peak of 130. The patient remained neurologically improved and stable. We will go ahead and discontinue dextrose solution. No further IVF anticipated. patient is to be monitor with liberal oral intake. 2. Chronic kidney disease stage 3: The patient has acute history of renal failure requiring hemodialysis in the past. Creatinine is elevated today from yesterday 's number most likely related to hemodynamic factors of volume status. We will monitor closely. 3. Hypokalemia: Repleted. We will monitor and replete as needed. 4. Acute encephalopathy: Multifactorial in etiology from polysubstance abuse, alcohol abuse with withdrawal as well as medications and hyponatremia. 5. Chronic obstructive pulmonary disease with acute exacerbation: Treatment as per Pulmonary and Critical Care. 6. Protein-calorie malnutrition: We will continue dietary supplement. Job ID: [id number] [facility]
[2018-12-23] MEDS: Mometasone/Formoterol 120 PUFF INHALER INH SCH (18:52)
[2018-12-23] MEDS: Cefdinir 300 MG CAP PO SCH (21:26)
[2018-12-23 22:03] VITALS: BMI 19.3
[2018-12-24] MEDS: Amitriptyline HCl 25 MG TAB PO SCH ×4 (00:57→23:55)
[2018-12-24] MEDS ORDERED: Diazepam 5 MG TAB PO PRN (04:00)
[2018-12-24 06:27] LABS: Band 2 % (5-11); Hemoglobin 11.5 g/dL (12.0-16.0); Lymphocytes 9 % (21-51); MDiff Complete? YES; Mean Corpuscular HGB CONC 34.5 g/dL (32.0-36.0); Mean Corpuscular Hemoglobin 33.1 pg (27.0-31.0); Mean Corpuscular Volume 95.7 fL (78.0-98.0); Mean Platelet Volume 6.3 fL (7.4-10.4); Monocytes 10 % (0-10); Neutrophil 79 % (42-75); Platelet Count 221 thou/uL (130-400); Platelet Morphology Comment Appears Adequate; RBC Distribution Width 10.9 % (11.5-14.5); RBC Morphology Normal; Red Blood Cell (RBC) Count 3.48 mill/uL (4.20-5.40); White Blood Cell (WBC) Count 3.5 thou/uL (4.8-10.8)
[2018-12-24] MEDS: methylPREDNISolone Sod Succ 40 MG VIAL IVP SCH (06:29)
[2018-12-24 06:35] LABS: ALT (SGPT) 13 U/L (8-55); AST (SGOT) 11 U/L (5-34); Albumin 3.6 g/dL (3.5-5.0); Alkaline Phosphatase 101 U/L (40-150); Anion Gap 10 mmol/L (10-20); BUN (Urea Nitrogen) 19 mg/dL (7.0-18.7); Bilirubin, Total 0.2 mg/dL (0.2-1.2); Calc. Creatinine Clearance 37 mL/min (70-130); Calcium 9.8 mg/dL (7.8-10.44); Carbon Dioxide 27 mmol/L (22-29); Chloride 98 mmol/L (98-107); Estimated GFR-MDRD 43; Globulin 3.4 g/dL (2.4-3.5); Glucose 94 mg/dL (70-105); Potassium 3.7 mmol/L (3.5-5.1); Sodium 131 mmol/L (136-145)
[2018-12-24] MEDS: Mometasone/Formoterol 120 PUFF INHALER INH SCH ×2 (06:44→18:27)
[2018-12-24 08:36] LABS: Magnesium 1.6 mg/dL (1.6-2.6)
[2018-12-24 08:40] LABS: Phosphorus 1.8 mg/dL (2.3-4.7)
[2018-12-24] MEDS ORDERED: K-Phos Neutral 250 MG TAB PO SCH (08:45)
[2018-12-24] MEDS: Cefdinir 300 MG CAP PO SCH ×2 (08:47→20:40)
[2018-12-24] MEDS: NIFEdipine XL 60 MG TAB PO SCH (08:47)
[2018-12-24] MEDS: Multivitamin W/ Minerals 1 TAB PO SCH (08:47)
[2018-12-24] MEDS: Famotidine 20 MG TAB PO SCH (08:49)
[2018-12-24] MEDS: Thiamine 100 MG TAB PO SCH (08:50)
[2018-12-24] MEDS: Folic Acid 1 MG TAB PO SCH (08:50)
[2018-12-24] MEDS: Enoxaparin Sodium 30 MG/0.3 ML SYRINGE SC SCH (08:56)
[2018-12-24] MEDS ORDERED: Magnesium Oxide 400 MG TAB PO SCH (09:00)
[2018-12-24] MEDS ORDERED: Magnesium 2 GM/50 ML 2 GM in Premix Bag 1 BAG IVPB SCH (09:00)
[2018-12-24] MEDS: Fluticasone Propionate Nasal Spray 16 gm Bottle NASAL SCH (11:02)
--- NOTE | 2018-12-24 11:53 | EKG ---
Test Reason : Blood Pressure : / mmHG Vent. Rate : 105 BPM Atrial Rate : 105 BPM P-R Int : 184 ms QRS Dur : 112 ms QT Int : 360 ms P-R-T Axes : 082 081 080 degrees QTc Int : 475 ms Sinus tachycardia Possible Left atrial enlargement Borderline ECG Confirmed by LEN SOTO DO ([id number]), science editor TINO ARANDA ([id number]) on 12/24/2018 11:53:39 AM Referred By: Confirmed By:LEN SOTO DO
--- NOTE | 2018-12-24 11:59 | PRG ---
DATE OF SERVICE: 12/24/2018 SUBJECTIVE: A 48-year-old female with chronic alcohol abuse, admitted due to acute encephalopathy and shortness of breath and was found to have severe hyponatremia, for which Nephrology is following her at this time. The patient reports feeling a lot better. She seems very appropriate, oriented, and conversational. Desires to turn her weight from using drugs and want to get her health back in shape. Denied nausea, vomiting, abdominal pain, or dysuria. Complained of continued cough with greenish sputum production. OBJECTIVE: VITAL SIGNS: Temperature 98.4, pulse 113, respiratory rate 16, SpO2 of 95% on 2 L nasal cannula, and blood pressure is 133/84. GENERAL: Middle-aged female, in no obvious distress. Afebrile. Anicteric. Acyanotic. HEENT: Normocephalic and atraumatic. Pupils are equal and reacting to light. RESPIRATORY: Fair air entry bilateral with prolonged expiration and some transmitted sounds. No obvious crackle or rhonchi was appreciated. There was no use of accessory muscles. GI: Abdomen is full, soft, nontender, nondistended with normal bowel sounds. EXTREMITIES: Grossly normal looking, atraumatic with no obvious edema, erythema, or cyanosis. Distal pulses are palpable. NEUROLOGIC: Conscious, alert, and oriented x3 with appropriate mental status. Conversational. Cranial nerves 2 through 12 are intact. No tremor was appreciated. Ambulant. DIAGNOSTIC DATA: CBC showed WBC count of 3.5, hemoglobin of 11.5, platelets of 221. CMP showed sodium 131, potassium 3.7, chloride 98, CO2 of 27, BUN 19, creatinine 1.32, glucose 94, calcium 9.8, total bilirubin 0.2, AST 11, ALT 13, alkaline phosphatase 101, total protein 7, albumin 3.6, globulin 3.4. Phosphorus 1.8, magnesium 1.6. ASSESSMENT AND PLAN: 1. Moderately severe and symptomatic hyponatremia. This was felt to be due to poor solute intake. Rate of correction was rather too fast, hence normal saline was discontinued and dextrose infusion started. Serum sodium went down from 130 to 128 and was appropriate at this time. We will go ahead and discontinue dextrose infusion. No further IV fluid will be provided. We will monitor plasma sodium at this time while encouraging liberal oral intake. 2. Chronic kidney disease stage 3 with possible reversible component. The patient reportedly was on hemodialysis for acute renal failure in the past. Creatinine had gone up with discontinuation of normal saline. It is beginning to trend back down, we will monitor. 3. Hypokalemia: Repleted. We will monitor and replete as needed. 4. Hypomagnesemia. We will replete as needed. 5. Acute encephalopathy: Multifactorial in etiology from polysubstance abuse, alcohol abuse withdrawal as well as medications and hyponatremia. 6. Chronic obstructive pulmonary disease with acute exacerbation. Treatment as per primary attending. 7. Disposition: We will need to monitor the plasma sodium and electrolytes at least one more day. Anticipate possible discharge tomorrow from Nephrology point of view. Job ID: [id number]
[2018-12-24] MEDS ORDERED: guaiFENesin ER 600 MG TAB PO SCH (12:15)
[2018-12-24] MEDS: K-Phos Neutral 250 MG TAB PO SCH ×2 (12:37→17:10)
--- NOTE | 2018-12-24 13:19 | PRG ---
DATE OF SERVICE: 12/24/2018 SUBJECTIVE: The patient is doing well, has no complaints, breathing well. OBJECTIVE: VITAL SIGNS: Temperature 98.4, pulse 113, blood pressure 133/84, O2 saturation 95% on room air. HEENT: Unremarkable. NECK: No adenopathy or JVD. CHEST: Clear to auscultation. No wheezing. CARDIAC: S1, S2 regular without murmur. ABDOMEN: Soft, nontender. EXTREMITIES: No edema. LABORATORY DATA: White blood cell count 3.5, hematocrit 33.3, and platelet count 221. Sodium 131, potassium 3.7, BUN 19, creatinine 1.3, and glucose 94. ASSESSMENT: 1. Polysubstance drug abuse. 2. Hyponatremia. 3. Chronic obstructive pulmonary disease. PLAN: She is stable for discharge at any time from my standpoint. Finish out a course of oral antibiotics. Agree with steroid taper. Dr. Jewell will see again on Wednesday if she is still here. Job ID: [id number]
[2018-12-24] MEDS: predniSONE 20 MG TAB PO SCH (17:10)
[2018-12-24] MEDS: guaiFENesin ER 600 MG TAB PO SCH (20:40)
--- NOTE | 2018-12-24 21:41 | PDOC.PN ---
- Subjective Encounter Start Date: 12/24/18 Encounter Start Time: 11:00 Patient seen and examined for Resp failure/electrolyte abn and alcohol withdrawal. Wheezing improving. No CP. No new complaints. No overnight events - Objective Resuscitation Status - Order Detail: 12/22/18 03:11 Resuscitation Status Routine Resuscitation Status: FULL: Full Resuscitation MAR Reviewed: Yes Vital Signs & Weight: Vital Signs (12 hours) Temp Pulse Resp BP BP Pulse Ox 12/24/18 20:00 98.5 F 113 H 16 128/83 128/83 92 L 12/24/18 18:23 106 H 16 12/24/18 13:50 120 H 16 Weight Weight 102 lb 10 oz Most Recent Monitor Data Heart Rate from ECG 114 NIBP 111/72 NIBP BP-Mean 85 Respiration from ECG 24 SpO2 100 I&O: 12/23/18 12/24/18 12/25/18 06:59 06:59 06:59 Intake Total 3350 Output Total 5850 Balance -2500 Result Diagrams: 12/24/18 05:56 12/24/18 05:55 Radiology Reviewed by me: Yes (CXR - no infiltrate) Phys Exam - Physical Examination Constitutional: NAD Respiratory: no rales, wheezing present (scat) Scat rhonchi, no accessory muscle use Cardiovascular: RRR, no rub no heaves/pulsations Gastrointestinal: soft, non-tender, no distention, positive bowel sounds Musculoskeletal: no edema, pulses present Neurological: non-focal, normal sensation, moves all 4 limbs Psychiatric: normal affect, A&O x 3 Dx/Plan - Plan DVT proph w/SCDs IMPRESSION: Acute on chronic hypoxic respiratory failure due to COPD Exacerbation Toxic Metabolic Encephalopathy - multifactorial Severe hyponatremia - improving Alcohol abuse/intoxication Cocaine abuse Hypomagnesemia/Hypophosphatemia CKD 3 Chronic Anemia PLAN: Cont Omnicef Change Steroids to PO Replace electrolytes Cont alcohol withdrawal protocol AM labs Counselled Cont other meds as below Review of Systems - Review of Systems Constitutional: negative: fever, chills, sweats, weakness, malaise, other Cardiovascular: negative: chest pain, palpitations, orthopnea, paroxysmal nocturnal dyspnea, edema, light headedness, other Gastrointestinal: negative: Nausea, Vomiting, Abdominal Pain, Diarrhea, Constipation, Melena, Hematochezia, Other - Medications/Allergies Allergies/Adverse Reactions: Allergies Allergy/AdvReac Type Severity Reaction Status Date / Time codeine Allergy Verified 12/23/18 08:23 meperidine [From Demerol] Allergy Verified 12/23/18 08:23 Medications: Current Medications Acetaminophen (Tylenol) 650 mg PO Q4H PRN PRN Reason: Headache/Fever/Mild Pain (1-3) Last Admin: 12/22/18 21:21 Dose: 650 mg Albuterol/Ipratropium (Duoneb) 3 ml NEB V3AT-LO [facility] Last Admin: 12/24/18 18:23 Dose: 3 ml Amitriptyline HCl (Elavil) 25 mg PO Q8H [facility] Last Admin: 12/24/18 17:11 Dose: 25 mg Calcium Carbonate (Tums) 1,000 mg PO Q4H PRN PRN Reason: Heartburn or Indigestion Cefdinir (Omnicef) 300 mg PO BID [facility] Last Admin: 12/24/18 20:40 Dose: 300 mg Clonidine (Catapres) 0.1 mg PO Q4H PRN PRN Reason: SBP >160 AND DBP >100 Diazepam (Valium) 5 mg PO Q4H PRN PRN Reason: FOR ASE 10 OR GREATER Enoxaparin Sodium (Lovenox) 30 mg SC 0900 [facility] Last Admin: 12/24/18 08:56 Dose: 30 mg Famotidine (Pepcid) 20 mg PO DAILY [facility] Last Admin: 12/24/18 08:49 Dose: 20 mg Fluticasone Propionate (Flonase Nasal [place] [employer] [place]) 0 gm NASAL DAILY [facility] Last Admin: 12/24/18 11:02 Dose: 1 spr Folic Acid (Folvite) 1 mg PO DAILY [facility] Last Admin: 12/24/18 08:50 Dose: 1 mg Guaifenesin (Mucinex) 600 mg PO Q12HR [facility] Last Admin: 12/24/18 20:40 Dose: 600 mg Guaifenesin/Dextromethorphan (Robitussin Dm) 15 ml PO Q4H PRN PRN Reason: Cough Iron/Minerals/Multivitamins (Theragran M) 1 tab PO DAILY [facility] Last Admin: 12/24/18 08:47 Dose: 1 tab Loperamide HCl (Imodium) 2 mg PO PRN PRN PRN Reason: Diarrhea/Loose Stools Mometasone Furoate/Formoterol Fumar (Dulera 200 Mcg/5 Mcg Inhaler) 2 puff INH BID-RT [facility] Last Admin: 12/24/18 18:27 Dose: 2 puff Nifedipine (Procardia Xl) 60 mg PO DAILY [facility] Last Admin: 12/24/18 08:47 Dose: 60 mg Ondansetron HCl (Zofran) 4 mg IVP Q6H PRN PRN Reason: Nausea/Vomiting Phosphorus (Kphos Neutral) 250 mg PO TID-[facility] Last Admin: 12/24/18 17:10 Dose: 250 mg Prednisone (Prednisone) 20 mg PO BID-[facility] Last Admin: 12/24/18 17:10 Dose: 20 mg Senna/Docusate Sodium (Senokot S) 2 tab PO BID PRN PRN Reason: Constipation Sodium Chloride (Flush - Normal Saline) 10 ml IVF Q12HR [facility] Last Admin: 12/24/18 20:41 Dose: Not Given Sodium Chloride (Flush - Normal Saline) 10 ml IVF PRN PRN PRN Reason: Saline Flush Sterile Water (Bacteriostatic Water) 1 ml FS PRN PRN PRN Reason: RECONSTITUTION Thiamine HCl (Thiamine) 100 mg PO DAILY [facility] Last Admin: 12/24/18 08:50 Dose: 100 mg
[2018-12-25 05:33] VITALS: TEMP 98
[2018-12-25] MEDS: Mometasone/Formoterol 120 PUFF INHALER INH SCH (06:47)
[2018-12-25 07:58] VITALS: BP 146/91
[2018-12-25] MEDS: Cefdinir 300 MG CAP PO SCH (08:58)
[2018-12-25] MEDS: Thiamine 100 MG TAB PO SCH (08:58)
[2018-12-25] MEDS: Multivitamin W/ Minerals 1 TAB PO SCH (08:58)
[2018-12-25] MEDS: Famotidine 20 MG TAB PO SCH (08:58)
[2018-12-25] MEDS: NIFEdipine XL 60 MG TAB PO SCH (08:58)
[2018-12-25] MEDS: predniSONE 20 MG TAB PO SCH (08:58)
[2018-12-25] MEDS: Fluticasone Propionate Nasal Spray 16 gm Bottle NASAL SCH (08:59)
[2018-12-25] MEDS: K-Phos Neutral 250 MG TAB PO SCH ×2 (08:59→12:43)
[2018-12-25] MEDS: Folic Acid 1 MG TAB PO SCH (08:59)
[2018-12-25] MEDS: Enoxaparin Sodium 30 MG/0.3 ML SYRINGE SC SCH (08:59)
[2018-12-25] MEDS: guaiFENesin ER 600 MG TAB PO SCH (08:59)
[2018-12-25] MEDS: Amitriptyline HCl 25 MG TAB PO SCH (10:00)
--- NOTE | 2018-12-25 13:11 | DIS ---
DATE OF ADMISSION: 12/22/2018 DATE OF DISCHARGE: 12/25/2018 DISCHARGE DISPOSITION: Home. FOLLOWUP: Follow up with primary care physician, Dr. Theresa Donaldson. INPATIENT CONSULTATIONS: 1. Nephrology, Dr. Duffy. 2. Pulmonary, Dr. Jewell. BRIEF HOSPITAL COURSE: The patient is a 48-year-old female with COPD, on home oxygen; and chronic alcoholism; presented to the hospital on 12/22/2018 with altered mentation along with shortness of breath. The patient reported that she has shortness of breath for last 5 days. Not much information was available on admission due to alcohol intoxication with a blood alcohol level of 192. Urine drug screen was positive for cocaine as well. Please refer to the history and physical dated 12/22/[address] Fonseca for further details. The patient was admitted to the intermediate care unit for close monitoring with a diagnosis of toxic-metabolic encephalopathy, along with respiratory failure. She was started on oxygen supplementation, nebulizer treatment, steroids, and antibiotics. Her respiratory status gradually improved. Steroid was then changed to oral. She is currently on oral Omnicef. Her O2 saturation on the day of discharge is 96% on room air while resting. On admission, the patient had a sodium level of 119. Serum osmolality was 273. She was evaluated by Nephrology, Dr. Duffy. The hyponatremia was felt to be secondary to poor solute intake. Her IV fluids were adjusted by Nephrology. Her sodium on the day of discharge is 131. Phosphorus level on the day of discharge is 1.8. She will require repeat labs after 1 week. Lifestyle modification was extensively emphasized. She stated understanding. Her mentation is back to baseline. The patient is alert, awake, and oriented x3, and she is ambulating in the hallway. She was provided with information on outpatient drug rehabilitation. DISCHARGE MEDICATIONS: 1. Omnicef 300 mg b.i.d. for next 5 days. 2. Prednisone taper. 3. Mucinex twice a day. 4. K-Phos Neutral 250 mg 3 times daily for next 4 days. 5. Multivitamin 1 tablet daily. 6. Thiamine 100 mg daily. All other home medications were left unchanged. FINAL DIAGNOSES: 1. Acute hypoxic and hypercapnic respiratory failure secondary to chronic obstructive pulmonary disease exacerbation/encephalopathy. 2. Chronic alcoholism with alcohol intoxication. 3. Toxic-metabolic encephalopathy, multifactorial. 4. Severe hyponatremia. 5. Hypomagnesemia, replaced. 6. Hypophosphatemia, replaced. 7. Chronic kidney disease stage 3. 8. Chronic anemia. 9. Cocaine abuse. 10. Leukopenia, probably secondary to alcohol abuse. Total time coordinating the discharge of this patient was 37 minutes. Again, the patient was extensively counseled to quit drinking. Repeat labs including magnesium and phosphorous after 1 week is recommended, primary care physician advised to follow. Job ID: [id number]
--- NOTE | 2018-12-25 14:55 | PRG ---
DATE OF SERVICE: 12/25/2018 SUBJECTIVE: A 48-year-old female, being seen for hyponatremia and CKD. The patient also was found to have acute encephalopathy and COPD exacerbation. Clinically improved. Ambulant. Denied shortness of breath, fever, or chest pain. Discharge is contemplated. OBJECTIVE: VITAL SIGNS: Temperature 98.0, pulse 102, respiratory rate 16, SpO2 of 96% on room air, and blood pressure 146/91. GENERAL: Middle-age female, in no obvious distress. The patient . HEENT: Normocephalic and atraumatic. Pupils are equal and reacting to light. Oral mucosa is moist. CARDIOVASCULAR: Regular rhythm, but tachycardic. Heart sounds 1 and 2 were heard. RESPIRATORY: Fair air entry bilaterally with no obvious crackle or rhonchi. Some transmitted sounds noted. Work of breathing is not increased. GI: Full, soft, nontender, and nondistended with normal bowel sounds. EXTREMITIES: Grossly normal looking, atraumatic, with no edema or erythema. Distal pulses are palpable. NEUROLOGIC: Conscious, alert, and oriented x3 with appropriate mental status. Cranial nerves 2 through 12 are intact. The patient is ambulant. SKIN: Few bruises and ecchymosis noted on both forearms. DIAGNOSTIC DATA: Renal function panel ordered earlier today could not be performed as the patient to get blood. ASSESSMENT AND PLAN: 1. Symptomatic hyponatremia: Improved. Sodium yesterday was 131. We do not have levels today as legal consultant could not get blood from the patient initially and she subsequently refused. Need to continue improved dietary intake while avoiding alcohol was reiterated as well as need to follow up in the office. The patient was advised to follow up in 1 to 2 weeks given our inability to get repeat blood work today. The patient also is to do a blood work a day prior to clinic visit. 2. Chronic kidney disease, stage 3: Stable. 3. Hypokalemia: Repleted. 4. Hypomagnesemia: Repleted. 5. Acute encephalopathy: [place] to be multifactorial in etiology from polysubstance abuse, alcohol withdrawal, as well as medications and hyponatremia. Improved to baseline. 6. COPD with acute exacerbation. 7. Polysubstance abuse. The patient is a known alcoholic. On presentation, urine drug screen was positive for cocaine and she admitted to using them. 8. Disposition: The patient can be discharged. Need to follow up with repeat BMP in 1 to 2 weeks. The importance of repeat blood work and followup was reiterated to the patient and she verbalized understanding. 9. Hypertension: Control is acceptable on current medication. We will need to avoid beta-lavell due to polysubstance abuse. Job ID: [id number]
== END 2018-12-25 16:55 | disposition home or self-care (01) | DRG 896 ==
LOC: EDBD 23:46 → ERS 23:46 → IMCU/EMU 12-22 02:19 → T4-B 12-23 20:43
PROVIDERS: ADMIT Internal Medicine; ATTEND Internal Medicine
DX: F10.229 Alcohol dependence with intoxication, unspecified (principal); G92 Toxic encephalopathy; J96.01 Acute respiratory failure with hypoxia; J96.02 Acute respiratory failure with hypercapnia; E87.1 Hypo-osmolality and hyponatremia; J44.1 Chronic obstructive pulmonary disease with (acute) exacerbation; Z68.1 Body mass index [BMI] 19.9 or less, adult; E87.2 Acidosis; E46 Unspecified protein-calorie malnutrition; N17.9 Acute kidney failure, unspecified; E87.6 Hypokalemia; D72.819 Decreased white blood cell count, unspecified; D64.9 Anemia, unspecified; K21.9 Gastro-esophageal reflux disease without esophagitis; F17.210 Nicotine dependence, cigarettes, uncomplicated; F31.9 Bipolar disorder, unspecified; Y90.6 Blood alcohol level of 120-199 mg/100 ml; N18.3 Chronic kidney disease, stage 3 (moderate); E83.39 Other disorders of phosphorus metabolism; F14.10 Cocaine abuse, uncomplicated; F19.10 Other psychoactive substance abuse, uncomplicated; D63.1 Anemia in chronic kidney disease; Z99.81 Dependence on supplemental oxygen; Z88.5 Allergy status to narcotic agent
CPT/HCPCS: 36415; 51701; 70450; 71045; 80048; 80053; 80306; 80307; 81003; 81015; 82140; 82533; 82570; 82805; 83735; 83880; 83930; 83935; 84100; 84300; 84443; 84484; 85007; 85025; 85027; 93005; 94640; 96365; 96375; A4353; J1650; J2060; J2920; J3411; J3475; J3480; J3490; J7050; J7512; J7620

== ENCOUNTER 2019-02-20 06:32 | Emergency (ER) | payer OTHER ==
[2019-02-20] MEDS ORDERED: Dexamethasone 10 MG/ML VIAL ONE (06:50)
[2019-02-20] MEDS ORDERED: Magnesium 2 GM/50 ML BAG (IN WATER) ONE (06:50)
[2019-02-20] MEDS ORDERED: Amitriptyline HCl 25 MG TAB PO SCH (07:00)
[2019-02-20 07:17] LABS: #Basophils 0.1 thou/uL (0.0-0.2); #Eosinphils 0.1 thou/uL (0.0-0.7); #Lymphocytes 1.6 thou/uL (1.20-3.40); #Monocytes 0.4 thou/uL (0.11-0.59); #Neutrophils 1.9 thou/uL (1.40-6.50); %Basophils 2.4 % (0.0-1.0); %Eosinophils 2.9 % (0.0-10.0); %Lymphocytes 39.4 % (21.0-51.0); %Monocytes 9.8 % (0.0-10.0); %Neutrophils 45.5 % (42.0-75.0); Hemoglobin 13.3 g/dL (12.0-16.0); Mean Corpuscular HGB CONC 34.7 g/dL (32.0-36.0); Mean Corpuscular Hemoglobin 32.8 pg (27.0-31.0); Mean Corpuscular Volume 94.5 fL (78.0-98.0); Mean Platelet Volume 6.1 fL (7.4-10.4); Platelet Count 242 thou/uL (130-400); RBC Distribution Width 11.5 % (11.5-14.5); Red Blood Cell (RBC) Count 4.06 mill/uL (4.20-5.40); White Blood Cell (WBC) Count 4.2 thou/uL (4.8-10.8)
[2019-02-20 07:30] LABS: ALT (SGPT) 15 U/L (8-55); AST (SGOT) 27 U/L (5-34); Albumin 4.2 g/dL (3.5-5.0); Alkaline Phosphatase 119 U/L (40-150); Anion Gap 14 mmol/L (10-20); BUN (Urea Nitrogen) 7 mg/dL (7.0-18.7); Bilirubin, Total 0.4 mg/dL (0.2-1.2); CK (CPK) 39 U/L (29-168); Calc. Creatinine Clearance 0 mL/min (70-130); Calcium 8.8 mg/dL (7.8-10.44); Carbon Dioxide 23 mmol/L (22-29); Chloride 94 mmol/L (98-107); Estimated GFR-MDRD 47; Globulin 3.1 g/dL (2.4-3.5); Glucose 86 mg/dL (70-105); Lipase 55 U/L (8-78); Protein, Total 7.3 g/dL (6.0-8.3); Sodium 129 mmol/L (136-145)
[2019-02-20 07:38] LABS: Potassium 2.4 mmol/L (3.5-5.1)
[2019-02-20] MEDS ORDERED: Potassium Chloride 20 MEQ TAB ONE (07:58)
--- NOTE | 2019-02-20 09:29 | RAD ---
SINGLE VIEW CHEST: HISTORY: Difficulty breathing. COMPARISON: 12/21/2018 FINDINGS: Single view of the chest show normal sized cardiomediastinal silhouette. There is no evidence of cons olidation, mass, or pleural effusion. The bones are unremarkable. IMPRESSION: No evidence of acute cardiopulmonary disease. POS: [facility]
--- NOTE | 2019-02-25 10:13 | EKG ---
Test Reason : Blood Pressure : / mmHG Vent. Rate : 088 BPM Atrial Rate : 088 BPM P-R Int : 186 ms QRS Dur : 086 ms QT Int : 412 ms P-R-T Axes : 086 083 103 degrees QTc Int : 498 ms Age and gender specific ECG analysis Normal sinus rhythm Septal infarct , age undetermined Abnormal ECG No changes from DEC-2018 Confirmed by SHANEKA BRANHAM, DAVID ([id number]), sound editor NICA MAO ([id number]) on 02/25/2019 10:12:49 AM Referred By: Confirmed By:DAVID MUNROE MD
== END 2019-02-20 09:29 | disposition home or self-care (01) ==
LOC: ERS 06:32
DX: J44.1 Chronic obstructive pulmonary disease with (acute) exacerbation (principal); E87.6 Hypokalemia; Z71.6 Tobacco abuse counseling; K21.9 Gastro-esophageal reflux disease without esophagitis; F41.9 Anxiety disorder, unspecified; F31.9 Bipolar disorder, unspecified; F17.210 Nicotine dependence, cigarettes, uncomplicated; Z79.899 Other long term (current) drug therapy
CPT/HCPCS: 36415; 71045; 80053; 82550; 83690; 83880; 84484; 85025; 93005; 96365; 96375; 99406; J1100; J3475

== ENCOUNTER 2019-03-20 00:31 | Emergency (ER) | payer OTHER ==
[2019-03-20] MEDS ORDERED: Albuterol Sulfate 2.5 mg/0.5 ml Neb ONE (00:58)
[2019-03-20] MEDS ORDERED: Albuterol Sulfate 2.5 mg/3 ml Neb ONE (00:58)
--- NOTE | 2019-03-20 07:33 | RAD ---
Portable frontal chest radiograph: 03/20/2019 COMPARISON: 02/20/2019 HISTORY: Shortness of breath FINDINGS: Lungs are clear. Heart and mediastinal contours appear within normal limits. IMPRESSION: No acute findings.
== END 2019-03-20 01:20 | disposition home or self-care (01) ==
LOC: ERS 00:31
DX: J44.1 Chronic obstructive pulmonary disease with (acute) exacerbation (principal); N18.6 End stage renal disease; F41.9 Anxiety disorder, unspecified; F31.9 Bipolar disorder, unspecified; F17.210 Nicotine dependence, cigarettes, uncomplicated; K21.9 Gastro-esophageal reflux disease without esophagitis; Z71.6 Tobacco abuse counseling; Z99.2 Dependence on renal dialysis
CPT/HCPCS: 71045; 94640; J7611

== ENCOUNTER 2019-03-20 02:10 | Emergency (ER) | payer OTHER ==
[2019-03-20] MEDS ORDERED: Acetaminophen 500 MG TAB ONE (02:17)
== END 2019-03-20 02:20 | disposition home or self-care (01) ==
LOC: ERS 02:10
DX: Z76.5 Malingerer [conscious simulation] (principal); N18.6 End stage renal disease; F41.9 Anxiety disorder, unspecified; F31.9 Bipolar disorder, unspecified; F17.210 Nicotine dependence, cigarettes, uncomplicated; Z99.2 Dependence on renal dialysis
CPT/HCPCS: 71045; 94640; 99281; 99406; J7611